=== PATIENT | female | born 1960 | race Caucasian/White ===

== ENCOUNTER 2022-12-07 13:27 | Outpatient (CLI) | payer BC | END 2022-12-07 13:28 | disposition home or self-care (01) | LOC: CSHCT 13:27 | PROVIDERS: ATTEND Urology | DX: N20.0 Calculus of kidney (principal); Z98.890 Other specified postprocedural states; N28.1 Cyst of kidney, acquired; K82.8 Other specified diseases of gallbladder; K80.20 Calculus of gallbladder without cholecystitis without obstruction; K44.9 Diaphragmatic hernia without obstruction or gangrene | CPT/HCPCS: 74177; 82565 ==